=== PATIENT | female | born 1955 | race Caucasian/White ===

== ENCOUNTER 2023-08-15 20:17 | Emergency (ER) | payer OTHER, SELFPAY ==
--- NOTE | ~2023-08-15 | CT_ITS ---
EXAMINATION: CT brain wo con DATE: 08/15/2023 20:28 INDICATION: cva symptoms . TECHNIQUE: Computed tomography (CT) of the head was performed without intravenous contrast. The mA wa s adjusted according to patient size. Iterative reconstruction technique was employed. The dose-lengt h product was 681.00 mGy-cm. COMPARISON: None. FINDINGS: No acute intracranial hemorrhage or extra-axial fluid collection. No hydrocephalus, mass, or herniation. No acute ischemic infarct. Unremarkable dural venous sinus attenuation. No acute osseous abnormality. Small left maxillary retention cyst/polyp, the remaining aerated spaces are clear. Mild atrophy and chronic white matter change. Atherosclerotic intracranial calcification. Bilateral l ens replacements. IMPRESSION: No acute intracranial process. Results reported telephonically to Dr. Garcia by Dr. Feng at 8:30 PM on 08/15/2023. Reviewed, dictated and finalized at location K. IMPRESSION: No acute intracranial process. Results reported telephonically to Dr. Garcia by Dr. Feng at 8:30 PM on 08/15/19 24.
--- NOTE | ~2023-08-15 | XR_ITS ---
EXAMINATION: XR chest 1V portable Exam Date/Time: 08/15/2023 20:25 CDT HISTORY: cva symptoms Comparison: None. RESULT: Lines, tubes, and devices: None. Lungs and pleura: Mild senescent change, otherwise clear. Cardiomediastinal silhouette: Stable. Other: No acute osseous or upper abdominal finding. IMPRESSION: No acute cardiopulmonary process. Reviewed, dictated and finalized at location K.
--- NOTE | 2023-08-15 20:20 | ECG_ITS ---
SEE SCANNED COPY FOR CONFIRMED REPORT. MTDD
[2023-08-15 20:22] LABS: Glucose Point of Care 98 mg/dl (65-105)
[2023-08-15 20:35] LABS: Estimated Glomerular Filt Rate > 60
[2023-08-15 20:37] LABS: Basophils Absolute Auto 0.1 K/mm3 (0.0-0.1); Basophils Percent Auto 0.5 % (0.2-1.2); Eosinophils Absolute Auto 0.1 K/mm3 (0-0.3); Eosinophils Percent Auto 0.3 % (0-4.4); Hematocrit 41.1 % (37.0-47.0); Hemoglobin 14.4 g/dL (12.0-15.0); Immature Granulocyte Absolute 0.05 K/mm3 (0.00-0.031); Immature Granulocyte Percent A 0.3 % (0-0.5); Lymphocytes Absolute Auto 3.28 K/mm3 (0.9-3.2); Lymphocytes Percent Auto 21.9 % (18.3-44.2); Mean Corpuscular Hemoglobin 32.1 pg (26-34); Mean Corpuscular Volume 91.5 fl (80-100); Mean Platelet Volume 10.9 fl (7.4-10.4); Monocytes Absolute Auto 1.1 K/mm3 (0.1-0.6); Monocytes Percent Auto 7.5 % (2.6-8.5); Neutrophils Absolute Auto 10.4 K/mm3 (1.3-6.7); Neutrophils Percent Auto 69.5 % (45.5-73.1); Platelet Count Result 255 k/mm3 (150-375); Red Blood Count 4.49 M/mm3 (4.2-5.4); Red Cell Distribution Width 11.7 % (11.5-14.5)
[2023-08-15 20:39] VITALS: BP 130/88; BP 131/109; PULSE 75; PULSE 78; PULSE 79; RESP 21; RESP 22; TEMP 36.7; O2SAT 97; O2SAT 98
[2023-08-15 20:47] LABS: Alanine Aminotransferase 14 U/L (6-35); Albumin Level 4.7 g/dL (3.5-5.1); Alkaline Phosphatase 86 U/L (38-126); Anion Gap 10 mmol/L (4-12); Aspartate Amino Transferase 24 U/L (14-36); Bilirubin,Total 1.1 mg/dL (0.2-1.3); Blood Urea Nitrogen 6 mg/dL (7-17); Calcium 9.3 mg/dL (8.4-10.2); Carbon Dioxide 24 mmol/L (22-30); Chloride 89 mmol/L (98-107); Estimated Glomerular Filt Rate > 60; Glucose 112 mg/dL (65-110); Sodium 123 mmol/L (137-145)
--- NOTE | 2023-08-15 20:52 | ED.GENADULT ---
HPI - General Adult General Chief complaint: Neuro Symptoms/Deficit Stated complaint: right side numbness Time Seen by Provider: 08/15/23 20:29 History of Present Illness HPI narrative: This is a 68-year-old female presenting for possible stroke. At 7:45 p.m. the patient started to feel loss of sensation the right side of her face and her right hand. She then came to the emergency department for evaluation. At this time patient is having some word-finding difficulty. No other complaints. Patient was prepping for a colonoscopy. Related Data Allergies Allergy/AdvReac Type Severity Reaction Status Date / Time No Known Allergies Allergy Verified 08/15/23 21:42 [facility] Past Medical History Medical History (Updated 08/15/23 @ 21:59 by Ata Garcia MD) Hyperlipidemia Exam Narrative: APPEARANCE: No apparent distress. Head: atraumatic. EYES: EOMI, NOSE: Atraumatic NECK: Trachea midline RESPIRATORY: No increased rate of breathing CARDIOVASCULAR: RRR, ABDOMINAL: Non-distended MUSCULOSKELETAl: No obvious deformities NEURO: Alert. Neuro exam is documented in the MDM SKIN:: Warm, dry. Normal color PSYCHIATRIC: Normal affect Course Vital Signs Vital signs: Vital Signs Temperature 98.0 F 08/15/23 20:39 Pulse Rate 75 08/15/23 20:39 Respiratory Rate 22 H 08/15/23 20:39 Blood Pressure 131/109 H 08/15/23 20:39 Pulse Oximetry 98 08/15/23 20:39 Oxygen Delivery Room Air 08/15/23 20:39 Temperature 98.0 F 08/15/23 20:39 Pulse Rate 78 08/15/23 20:39 Respiratory Rate 21 H 08/15/23 20:39 Blood Pressure 130/88 08/15/23 20:39 Pulse Oximetry 97 08/15/23 20:39 Oxygen Delivery Room Air 08/15/23 20:39 Medical Decision Making [facility] Narrative Medical decision making narrative: 68-year-old female presenting with stroke-like symptoms. NIH 6. Within the tPA window. CT non-con negative. CTA head and neck delayed due to IV infiltration. Dr. Yeager ([facility] Stroke attending) was consulted. Video conference was performed and he was able to evaluate the patient and confirmed an NIH of 6. He recommended thrombolytics. Family has consented to the procedure. Patient started on alteplase in transfer ED 2 ED [facility]. CTA to be performed at outside hospital Accepted by Dr. Reid (ED.) NIH Stroke Scale/Score (NIHSS) from [employer] on 08/15/2023 All calculations should be rechecked by clinician prior to use RESULT SUMMARY: 6 points NIH Stroke Scale INPUTS: 1A: Level of consciousness ?> 0 = Alert; keenly responsive 1B: Ask month and age ?> 2 = 0 questions right 1C: 'Blink eyes' & 'squeeze hands' ?> 1 = Performs 1 task 2: Horizontal extraocular movements ?> 0 = Normal 3: Visual brock ?> 0 = No visual loss 4: Facial palsy ?> 1 = Minor paralysis (flat nasolabial fold, smile asymmetry) 5A: Left arm motor drift ?> 0 = No drift for 10 seconds 5B: Right arm motor drift ?> 1 = Drift, but doesn't hit bed 6A: Left leg motor drift ?> 0 = No drift for 5 seconds 6B: Right leg motor drift ?> 0 = No drift for 5 seconds 7: Limb Ataxia ?> 0 = No ataxia 8: Sensation ?> 0 = Normal; no sensory loss 9: Language/aphasia ?> 1 = Mild-moderate aphasia: some obvious changes, without significant limitation 10: Dysarthria ?> 0 = Normal 11: Extinction/inattention ?> 0 = No abnormality tPA Contraindications for Ischemic Stroke from [employer] on 08/15/2023 All calculations should be rechecked by clinician prior to use RESULT SUMMARY: Patient eligible for tPA. INPUTS: Age >=8 ?> 1 = Yes Clinical diagnosis of ischemic stroke causing neurological deficit ?> 1 = Yes Time of symptom onset ?> 1 = Yes Intracranial hemorrhage on CT ?> 0 = No Clinical presentation suggests subarachnoid hemorrhage ?> 0 = No Neurosurgery, head trauma, or stroke in past 3 months ?> 0 = No Uncontrolled hypertension (>185 mmHg SBP or >110 mmHg DBP) ?> 0 = No History of intracranial hemorrhage ?> 0 = No Known intra
[2023-08-15 20:56] LABS: INR 0.9; Partial Thromboplastin Time 27.4 Seconds (22.3-36.8)
[2023-08-15 21:00] LABS: Troponin I 0.101 ng/mL (0.000-0.034)
[2023-08-15] MEDS: SODIUM CHLORIDE 0.9% IV 1,000 ML 999 ML IV CONT (21:51)
[2023-08-15 21:56] VITALS: BP 111/73; PULSE 65; RESP 17; TEMP 36.6; O2SAT 95
[2023-08-15 21:57] VITALS: PULSE 65
== END 2023-08-15 22:21 | disposition short-term general hospital (02) ==
PROVIDERS: Emergency Provider Emergency Medicine
DX: I63.9 Cerebral infarction, unspecified (principal); R29.706 NIHSS score 6; E78.5 Hyperlipidemia, unspecified; R94.31 Abnormal electrocardiogram [ECG] [EKG]
CPT/HCPCS: 36415; 37195; 70450; 71045; 80053; 82948; 84484; 85025; 85610; 85730; 93005; 99285; J2997; J7030

== ENCOUNTER 2023-09-16 13:17 | Outpatient (RCR) | payer OTHER, SELFPAY ==
--- NOTE | 2023-09-16 14:01 | OTOPEVDC ---
Assessment and note entered by GERTRUDIS Smith/Reji, CHT Evaluation Information & Discharge Notification 09/16/23 Diagnosis TIA Subjective Information Patient reports experiencing onset of bilateral UE tingling and some facial droop, she was air lifted to [facility] where she spent a few nights and discharged home. She reports her symptoms have completely resolved and she is functioning back to her baseline. She reports they are wondering if she had seizure activity and are having her follow up with another physician in October. Reported Pain Level Pain Score 0: Self Report Assessment OT Clinical Summary Patient referred to OT with dx of TIA. She presents today with intact, functional, and symmetrical UE strength. Fine motor coordination, as measured by the 9-hole peg test is WNL. She is functioning at her baseline with ADLs. No further skilled OT indicated at this time. OT Services Indicated No
--- NOTE | 2023-09-16 14:28 | PTOPEVDC ---
Assessment and note entered by Magui Mayfield, PT Thank you for referring Caprice Rosario to [facility].? An evaluation has been completed. No further treatment is needed. Evaluation/Discharge Information Assessment Status Evaluation/ Discharge Diagnosis transient alteration of awareness Onset 08-15-23 Subjective Information to ER due to weakness/ ? CVA; [facility] program and was given it; determined not to have had TIA or CVA; ? seizure - refer to neurologist, to see in October; on seizure med and cannot drive for 6 months; Active; retired, active; have fitness member ship, mostly do the walking there. has returned to her usual home tasks and does not have any problems; Reported Pain Level Pain Score 0: Self Report Pain Score 0: Self Report Assessment PT Clinical Summary Jodie has the diagnosis of transient alteration of awareness, went to ER with R side weakness. With hospitalization and testing, pt reports they told her it may have been a seizure--has neurologist appointment in October. On the day she went to ER, she was doing a colon prep for colonoscopy and electrolytes and sodium were abnormal. She has returned to her normal activity level at home and returning to the fitness center for exercises. With the evaluation: Montano balance test 55/56- decreased single leg standing on both legs; with the leg press, able to perform 80# x 10 reps with R and L LE only; 2 minute walking test distance of 525' and with balance testing, did not demonstrate any issues or concerns with her mobility. Skilled PT services are not indicated. Discussed with pt fitness activities at the gym to increase LE strength and balance skills with single leg standing. Discharge PT services. Plan of Care PT Services Indicated No
== END 2023-09-16 16:12 | disposition home or self-care (01) ==
LOC: ANHOT 13:17
PROVIDERS: PCP Internal Medicine
DX: R40.4 Transient alteration of awareness (principal); R20.2 Paresthesia of skin
CPT/HCPCS: 97110; 97161

== ENCOUNTER 2024-04-29 14:40 | Emergency (ER) | payer OTHER, SELFPAY ==
--- NOTE | ~2024-04-29 | CT_ITS ---
Clinical indication:Fall COMPARISON:Plain film evaluation of the right elbow, performed on the same day (which demonstrated el evation of the anterior fat pad suggesting a possible supracondylar fracture). TECHNIQUE: Multiple contiguous axial images of the right elbow were performed without the administrat ion of intravenous contrast. FINDINGS: No acute displaced fracture is appreciated on this CT examination. Multiple punctate foci of air are identified within the soft tissues posterior to the olecranon. IMPRESSION: No acute displaced fracture on CT examination of the right elbow, as detailed above. Reviewed, dictated and finalized at location A. ULTURIST IMPRESSION: No acute displaced fracture on CT examination of the right elbow, as detailed a rukhsana.
--- NOTE | ~2024-04-29 | CT_ITS ---
History: Fall PROCEDURE: CT head without contrast. COMPARISON: 08/15/2023 TECHNIQUE: Axial imaging of the head performed from the skull base to the vertex without IV contrast. Sagittal a nd coronal reformations obtained. DLP: 605 mGy-cm FINDINGS: The ventricles are normal in size, shape and position. There is no mass, mass effect or midline shift. There is no abnormal extra-axial fluid collection or intracranial hemorrhage. Visualized paranasal sinuses are clear. Fluid within the left mastoid air cells. The right mastoid air cells are clear. No acute displaced fractures within the overlying cranium. Impression: No acute intracranial hemorrhage or suspicious mass effect. Left mastoid inflammatory change. Reviewed, dictated and finalized at location A. IC TANK CLEANER Impression: No acute intracranial hemorrhage or suspicious mass effect. Left mastoid inflammatory change.
--- NOTE | ~2024-04-29 | XR_ITS ---
HISTORY: right elbow pain, fall COMPARISON: None TECHNIQUE: 4 views of the right elbow were performed FINDINGS: No acute displaced fracture or dislocation is identified. Trace elevation of the anterior fat pad is identified, suggesting a possible supracondylar fracture. Overlying soft tissues are otherwise unremarkable. Bone mineralization is age-appropriate. IMPRESSION: No acute displaced fracture or dislocation. Secondary findings suggesting a possible supracondylar fracture, as detailed above. Reviewed, dictated and finalized at location A. ESS/WELLNESS DIRECTOR IMPRESSION: No acute displaced fracture or dislocation. Secondary findings suggesting a possible supracondylar fracture, as detailed ab ove.
[2024-04-29 14:44] VITALS: BP 170/77; PULSE 102; RESP 18; TEMP 36.6; O2SAT 100
--- NOTE | 2024-04-29 14:55 | ED_ITS ---
HPI - Extremity Injury (Upper) General Chief Complaint: Extremity Injury, Upper <Anahi Arellano PA-C - Last Filed: 04/29/24 22:47> Stated Complaint: fall <Anahi Arellano PA-C - Last Filed: 04/29/24 22:47> Time Seen by Provider: 04/29/24 14:55 <Anahi Arellano PA-C - Last Filed: 04/29/24 22:47> Focused HPI: This is a 68-year-old female that presents to the emergency department after a fall today. Reports she slipped and fell onto her right side. She did hit her head. She did not lose consciousness. Reports an injury to the right elbow with laceration. Denies decreased range of motion or numbness. GENERAL: Well-appearing, well-nourished, and in no acute distress. HEAD: Normocephalic, atraumatic. CHEST: Clear to auscultation. ?No respiratory distress. HEART: Regular rate and rhythm.? NEURO: ?Alert and oriented x3. Patient screened in triage and initial orders placed.? ?Additional care and disp osition to be based upon?diagnostic testing and treatment. <Anahi Arellano PA-C - Last Filed: 04/29/24 22:47> History of Present Illness HPI narrative: Agree with the above with the following additions/corrections: Not on anticoagulation. Denies fever. She notes bilateral diminished hearing but this has been chronic (states she needs to get this assessed for hearing aid evaluation), no acute changes and no tinnitus. Can not recall her last tetanus but states it has been awhile. Having some stinging/burning pain where she has a laceration on right elbow but denies any bony pain. thought he saw bone because he saw white. <Abigail Bearden MD - Last Filed: 04/30/24 23:28> Related Data Allergies/Adverse Reactions: Allergies Allergy/AdvReac Type Severity Reaction Status Date / Time No Known Allergies Allergy Verified 08/15/23 21:42 <Anahi Arellano PA-C - Last Filed: 04/29/24 22:47> Review of Systems Review of Systems: All systems reviewed & are unremarkable except as noted in HPI and below <Anahi Arellano PA-C - Last Filed: 04/29/24 22:47> [facility] Past Medical History Medical History: Medical History (Updated 04/30/24 @ 00:00 by Background Verenice) Hyperlipidemia <Anahi Arellano PA-C - Last Filed: 04/29/24 22:47> Social History Social History: Social History (Updated 04/29/24 @ 19:44 by Abigail Bearden MD) Spiritual care concerns: No (goes to protestant) <Anahi Arellano PA-C - Last Filed: 04/29/24 22:47> Exam Narrative: GENERAL: Well-appearing, well-nourished, and in no acute distress. HEAD: Normocephalic, atraumatic. Slightly prominent mastoids bilaterally but hidden by hair and without tenderness to palpation. EYES: Non injected, non icteric ENT: Nares clear, no rhinorrhea or epistaxis. External pinnae normal, not protruding. No tenderness to palpation of bilateral pinnae. NECK: Supple. CHEST: Speaking in full sentences. No respiratory distress. HEART: Regular rate and rhythm. . ABDOMEN: Soft, nondistended. EXTREMITIES: Normal range of motion. No edema. Strong radial pulse on the right. SKIN: Warm, dry. No ecchymosis over forearm or at elbow. 2cm linear laceration at right proximal forearm/elbow, some subcutaneous fat visible but bleeding well controlled. NEURO: No focal deficits. Alert and oriented x3. Median nerve: Motor = No Weakness of hand flexors (able to make OK sign) and abduct of thumb. Radial nerve: Motor: No weakness with wrist extension, Or thumb extension (thumbs up). Sensory = No Altered sensation in dorsal thumb-index web space Ulnar nerve: Motor: No Weakness of index finger abduction. Sensory: No Alteration of two-point discrimination over tip of little finger PSYCH: Normal mood and affect. <Abigail Bearden MD - Last Filed: 04/30/24 23:28> Course Vital Signs Vital signs: Vital Signs Temperature 97.8 F 04/29/24 14:44 Pulse Rate 102 H 04/29/24 14:44 Respiratory Rate 18 04/29/24 14:44 Blood Pressure 170/77 H 04/29/24 14:44 Pulse Oximetry 100 04/29/24 14:44 Temperature 98 F 04/29/24 20:00 Pulse Rate 67 04/29/24 20:00 Respiratory Rate 20 04/29/24 20:00 Blood Pressure 153/60 H 04/29/24 20:00 Pulse Oximetry 99 04/29/24 20:00 <Anahi Arellano PA-C - Last Filed: 04/29/24 22:47> Vital Signs Temperature 97.8 F 04/29/24 14:44 Pulse Rate 102 H 04/29/24 14:44 Respiratory Rate 18 04/29/24 14:44 Blood Pressure 170/77 H 04/29/24 14:44 Pulse Oximetry 100 04/29/24 14:44 Temperature 98 F 04/29/24 20:00 Pulse Rate 67 04/29/24 20:00 Respiratory Rate 20 04/29/24 20:00 Blood Pressure 153/60 H 04/29/24 20:00 Pulse Oximetry 99 04/29/24 20:00 <Abigail Bearden MD - Last Filed: 04/30/24 23:28> Procedures Laceration Laceration 1: Date: 04/29/24 <Abigail Bearden MD - Last Filed: 04/30/24 23:28> Site: upper extremity <Abigail Bearden MD - Last Filed: 04/30/24 23:28> Side (If applicable): right <Abigail Bearden MD - Last Filed: 04/30/24 23:28> Size (cm): 2 <Abigail Bearden MD - Last Filed: 04/30/24 23:28> Description: irregular and clean <Abigail Bearden MD - Last Filed: 04/30/24 23:28> Depth: simple, single layer <Abigail Bearden MD - Last Filed: 04/30/24 23:28> Local Anesthetic: lidocaine 1% and with epi <Abigail Bearden MD - Last Filed: 04/30/24 23:28> Amount of anesthesia used (mL): 5 <Abigail Bearden MD - Last Filed: 04/30/24 23:28> Pre-repair: wound explored, irrigated (with normal saline) and deep structures intact <Abigail Bearden MD - Last Filed: 04/30/24 23:28> ====== Skin Level ======: Skin layer closed with: other (Ethilon) <Abigail Bearden MD - Last Filed: 04/30/24 23:28> Size (cm): 5-0 <Abigail Bearden MD - Last Filed: 04/30/24 23:28> Number of sutures: 4 <Abigail Bearden MD - Last Filed: 04/30/24 23:28> Technique: simple, interrupted <Abigail Bearden MD - Last Filed: 04/30/24 23:28> ====== Subcutaneous Layer ======: ====== Muscle Layer ======: ====== Tendon Layer ======: Dressing: Applied by RN <Abigail Bearden MD - Last Filed: 04/30/24 23:28> MDM - Extremity Injury (Upper) [facility] Narrative Medical decision making narrative: Patient presents with right elbow/proximal forearm laceration with some associated pain after she fell. In the emergency department she is afebrile with vital signs notable for hypertension and mild tachycardia. Can not recall last tetanus so updated. patient given analgesic oral pain medicine. Imaging concernign for possible occult supracondylar fracture so proceeded with CT imaging which is negative. Patient has a very reassuring and thorough physical exam and is neurovsacularly intact. Laceration repair performed as above. Patient tolerates this well. Stable for discharged. Extensively discussed good wound care, signs of infection, and the timeline for removal (erring on the latter end of the range given age). <Abigail Bearden MD - Last Filed: 04/30/24 23:28> Differential Diagnosis Differential diagnosis: Likely other (elbow fracture/dislocation; laceration; ) <Abigail Bearden MD - Last Filed: 04/30/24 23:28> Imaging Data Radiologist's impression: ITS Impressions Elbow X-Ray 04/29/24 15:26 IMPRESSION: No acute displaced fracture or dislocation. Secondary findings suggesting a possible supracondylar fracture, as detailed above. Head CT 04/29/24 15:33 Impression: No acute intracranial hemorrhage or suspicious mass effect. Left mastoid inflammatory change. Elbow CT 04/29/24 18:50 IMPRESSION: No acute displaced fracture on CT examination of the right elbow, as detailed above. <JOSE Davis Last Filed: 04/29/24 22:47> Critical Care Time Critical Care Time Critical Care Time: No <JOSE Davis Last Filed: 04/29/24 22:47> Discharge Plan Discharge Clinical Impression: Fall, Contusion of bone, Laceration of elbow <JOSE Davis Last Filed: 04/29/24 22:47> Patient Disposition: Home, Self-Care <JOSE Davis Last Filed: 04/29/24 22:47> Condition: Stable <JOSE Davis Last Filed: 04/29/24 22:47> Instructions: Antibiotic Form, Care For Your Stitches (ED), Laceration (ED), Fall Prevention for Older Adults (ED), Contusion in Adults (ED) <JOSE Davis Last Filed: 04/29/24 22:47> Additional Instructions: As we discussed, you had 4 stitches placed. These can be removed in approximately 12-14 days either at your primary care physicians, urgent care, or by returning to the emergency department. If you need the name of a primary care physician, a doctors listed below. Return to the emergency department with any new/worsening/unmanaged symptoms or signs of infection such as fever greater than 100.4 F, spreading redness, drainage of pus, etc. keep the area clean warm and dry. Warm soapy water is fine, no need to scrub. Do not apply hydrogen peroxide or use Neosporin. If desired, you can use a topical antibiotic or petroleum jelly/Vaseline. Make sure fully dry before re-applying a bandage. Acetaminophen/Tylenol (maximum 4000 mg per day) is safe to take with NSAIDs (ibuprofen/Motrin) for pain relief. <JOSE Davis Last Filed: 04/29/24 22:47> Patient Language: Icelandic <Anahi Arellano PA-C - Last Filed: 04/29/24 22:47> Prescriptions: New ibuprofen 600 mg tablet 600 mg PO TID PRN (Reason: pain) Qty: 30 0RF acetaminophen 500 mg capsule 1,000 mg PO Q6H PRN (Reason: pain) Qty: 30 0RF <Anahi Arellano PA-C - Last Filed: 04/29/24 22:47> Follow-up/Referrals: Rene,Babita Espino MD [Primary Care Provider] - Matthew Weaver MD [Physician] - <Anahi Arellano PA-C - Last Filed: 04/29/24 22:47> Time of Disposition: 19:44 <Anahi Arellano PA-C - Last Filed: 04/29/24 22:47> 19:44 <Abigail Bearden MD - Last Filed: 04/30/24 23:28>
[2024-04-29] MEDS: TETANUS,DIPHTHERIA,AC PERTUSSIS ADULT (0.5 ML) BOOSTRIX IM (17:59)
[2024-04-29] MEDS: HYDROcodone/acetaminophen (*CRX) 5-325 MG TABLET 1 TAB PO (18:00)
[2024-04-29 20:00] VITALS: BP 153/60; PULSE 67; RESP 20; TEMP 36.6; O2SAT 99
== END 2024-04-29 20:00 | disposition home or self-care (01) ==
PROVIDERS: Emergency Provider Student in an Organized Health Care Education/Training Program; PCP Internal Medicine
DX: S51.011A Laceration without foreign body of right elbow, initial encounter (principal); S09.90XA Unspecified injury of head, initial encounter; Z23 Encounter for immunization; E78.5 Hyperlipidemia, unspecified; W01.0XXA Fall on same level from slipping, tripping and stumbling without subsequent striking against object, initial encounter
CPT/HCPCS: 12001; 70450; 73080; 73200; 90471; 90715; 99284; A9270; J2004